=== PATIENT | female | born 1965 | race Caucasian/White ===

== ENCOUNTER 2020-08-23 07:51 | Day surgery (SDC) | payer BC ==
[~2020-08-23] VITALS: Ht 160 cm; Wt 58.8 kg
[~2020-08-23 07:51] MED LIST: IBUP400 PO; TESTOSTERONE; ZOLP10 PO; ZYRTEC10 M2
--- NOTE | 2020-08-23 09:43 | NUR ---
08/23/20 0943 Anthony Rowe PT DENIES ANY DIZZINESS OR LIGHT HEADNESS. PT STATES SHE IS READY TO GO HOME. AMBULATED TO CAR WITH WITHOUT ANY PROBLEMS
== END 2020-08-23 09:43 | disposition home or self-care (01) ==
LOC: ORSCSDS 07:51
PROVIDERS: Internal Medicine Gastroenterology
PROC: 0DJD8ZZ Inspection of Lower Intestinal Tract, Via Natural or Artificial Opening Endoscopic (ICD-10-PCS; principal; 2020-08-23 09:00)
DX: Z12.11 Encounter for screening for malignant neoplasm of colon (principal); Z86.010 Personal history of colon polyps
CPT/HCPCS: J2704; J7120